=== PATIENT | male | born 2000 | race African-American/Black ===

== ENCOUNTER → 2021-10-22 | Outpatient (CLI) | payer OTHER ==
--- NOTE | 2021-10-22 13:21 | 2DMMODE ---
[place] [address] 2 D/M-MODE ECHOCARDIOGRAM Name: DARLENE PETERSON Room: [facility]#: [id number] Admission: 10/22/21 Attend Phys: Suzy Serrano RN Discharge: Date of : 01 Date of Service: 10/22/21 1321 Report #: [id number] THIS REPORT FOR: cc: FAM - Family physician unknown FAM - Family physician unknown Esequiel Moctezuma MD [facility] ~ APPROVED REPORT Study performed: 10/22/2021 10:54:38 EXAM: Comprehensive 2D, Doppler, and color-flow Echocardiogram Patient Location: Out-Patient BSA: 1.99 HR: 76 bpm BP: 140/92 mmHg Other Information Study Quality: Good Indications Abnormal ECG Hypertension/HDD 2D Dimensions IVSd: 12.29 (7-11mm) LVOT Diam: 20.80 (18-24mm) LVDd: 41.81 mm PWd: 11.21 (7-11mm) Ascending Ao: 28.50 (22-36mm) LVDs: 28.76 (25-40mm) Aortic Root: 27.16 mm Volumes Left Atrial Volume (Systole) LA ESV Index: 12.40 mL/m2 Aortic Valve AoV Peak Pardeep.: 1.19 m/s AO Peak Gr.: 5.62 mmHg LVOT Max P.15 mmHg AO Mean Gr.: 2.96 mmHg LVOT Mean P.33 mmHg LVOT Max V: 1.13 m/s AO V2 VTI: 21.92 cm LVOT Mean V: 0.70 m/s JOSE (VTI): 3.44 cm2 LVOT V1 VTI: 22.[place] [address] 2 D/M-MODE ECHOCARDIOGRAM Name: DARLENE PETERSON Room: [facility]#: [id number] Admission: 10/22/21 Attend Phys: Suzy Serrano RN Discharge: Date of : 01 Date of Service: 10/22/21 1321 Report #: [id number] E/A Ratio: 1.85 MV Decel. Time: 155.40 ms MV E Max Pardeep.: 0.77 m/s MV PHT: 45.06 ms MVA (PHT): 4.88 cm2 TDI E/Lateral E': 4.05 E/Medial E': 5.13 Medial E' Pardeep.: 0.15 m/s Lateral E' Pardeep.: 0.19 m/s Pulmonary Valve PV Peak Pardeep.: 1.05 m/s PV Peak Gr.: 4.42 mmHg Tricuspid Valve RAP Estimate: 5.00 mmHg TR Peak Gr.: 18.40 mmHg RVSP: 23.40 mmHg PA Pressure: 23.40 mmHg Left Ventricle The left ventricle is normal size. There is normal LV segmental wall motion. Mild concentric left ventricular hypertrophy. Left ventricular systolic function is normal. The left ventricular ejection fraction is within the normal range. LVEF is 55-60%. The left ventricular diastolic function is normal. Right Ventricle The right ventricle is normal size. The right ventricular systolic function is normal. Atria The left atrium size is normal. The right atrium size is normal. Aortic Valve The aortic valve is normal in structure. No aortic regurgitation is present. There is no aortic valvular stenosis. Mitral Valve The mitral valve is normal in structure. There is no mitral valve regurgitation noted. No evidence of mitral valve stenosis. Tricuspid Valve The tricuspid valve is normal in structure. [place] [address] 2 D/M-MODE ECHOCARDIOGRAM Name: DARLENE PETERSON Room: [facility]#: [id number] Admission: 10/22/21 Attend Phys: Suzy Serrano RN Discharge: Date of : 01 Date of Service: 10/22/21 1321 Report #: [id number] Pulmonic Valve The pulmonary valve is normal in structure. Mild pulmonic regurgitation. Great Vessels The aortic root is normal in size. IVC is normal in size and collapses >50% with inspiration. Pericardium There is no pericardial effusion. <Conclusion> The left ventricle is normal size. Mild concentric left ventricular hypertrophy. Left ventricular systolic function is normal. The left ventricular ejection fraction is within the normal range. LVEF is 55-60%. The left ventricular diastolic function is normal. Mild tricuspid regurgitation. Mild pulmonic regurgitation. IVC is normal in size and collapses >50% with inspiration. <ELECTRONICALLY SIGNED> By: Esequiel Moctezuma MD, FACC 10/22/21 1321 132 132 Esequiel Moctezuma MD, FACC /INF
== END ==
LOC: M.CRD 09:40
PROVIDERS: ATTEND Registered Nurse
DX: I08.8 Other rheumatic multiple valve diseases (principal); R94.31 Abnormal electrocardiogram [ECG] [EKG]